=== PATIENT | female | born 1975 | race Asian ===

== ENCOUNTER 2024-10-04 14:03 | Emergency (ER) | payer BC, SELFPAY ==
[2024-10-04 14:05] VITALS: BMI 34.9
--- NOTE | 2024-10-04 14:07 | EKG_ITS ---
[facility] Test Date: 2024-10-04 Pat Name: EDNA RICHARDSON Department: Room: - Gender: Female [employer]: : 1975 Requested By: ED Temporary Provider Order Number: [id number] Reading MD: ED Temporary Provider Measurements Intervals [place] Rate: 85 P: 45 AK: 162 QRS: 19 QRSD: 77 T: 41 QT: 342 QTc: 407 Interpretive Statements SINUS RHYTHM POSSIBLE LEFT ATRIAL ENLARGEMENT [-0.1mV P WAVE IN V1/V2] Compared to ECG 04/12/2021 11:54:40 Sinus tachycardia no longer present /store/S0/[id number]
--- NOTE | 2024-10-04 14:13 | XR_ITS ---
Examination: PA lateral chest 2 views TECHNIQUE: Upright PA lateral chest 2 views Exam date 9: October 04, 2024 1519 hours Comparison 06/10/2021 INDICATIONS: Onset chest pain today. FINDINGS: Normal heart size Suspicious for subtle parenchymal disease in the right upper lobe Left lung clear No pulmonary edema IMPRESSION: Recommend AP lordotic chest follow-up to exclude subtle parenchymal disease in the right upper lobe
--- NOTE | 2024-10-04 14:13 | XR_ITS ---
Examination: CT brain head without contrast. 2-D sagittal coronal reconstructions Date and time of exam:October 04, 2024 1447 hours INDICATIONS: Onset headaches and dizziness beginning today CTDI: vol (mGy):46.5 DLP: (mGycm):920 Technique: Multiple CT axial sections of the brain have been obtained, 5 mm slice thickness. Contrast has not been administered. 2-D sagittal, coronal reconstructions have been obtained Low dose protocols were performed. One or more of the following dose reduction techniques were used; automated exposure control, adjustment of the mA and/or KV according to patient size, use of iterative reconstruction technique. Findings: No significant ventricular enlargement. Intra-axial or extra-axial hemorrhage density is not seen. No mass effect or midline shift Basal cisterns are not remarkable. Fourth ventricle is midline. Cranial vault intact. Impression: Negative for acute hemorrhage, mass effect or midline shift Advise clinical correlation and follow-up accordingly
--- NOTE | 2024-10-04 14:13 | PD.EDRME ---
Rapid Medical Screening Exam RME Arrival date/time: 10/04/24 14:03 48-year-old female presents the emergency department complaints of elevated blood pressure, headache, chest pain Chief Complaint: Chest Pain
[2024-10-04 14:15] VITALS: BP 150/95; PULSE 86; RESP 18; TEMP 37.1; O2SAT 97
[2024-10-04 14:40] LABS: Basophils % (Auto) 0 % (0-2.5); Eosinophils # (Auto) 0.1 Thou/mm3 (0.0-0.5); Eosinophils % (Auto) 1 % (0-10); Hematocrit 42.5 % (36.0-46.0); Hemoglobin 13.8 g/dL (12.0-16.0); Immature Granulocytes % (Auto) 1 % (0-0); Immature Granulocytes Auto 0.04 Thou/mm3 (0.00-0.00); Lymphocytes # (Auto) 2.5 Thou/mm3 (1.0-4.8); Lymphocytes % (Auto) 30 % (10-50); Mean Corpuscular HGB Conc 32.5 g/dl (31.0-37.0); Mean Corpuscular Hemoglobin 30.6 pg (25.0-35.0); Mean Corpuscular Volume 94 fL (80-100); Monocytes # (Auto) 0.4 Thou/mm3 (0.0-0.8); Monocytes % (Auto) 5 % (0-12); Neutrophils # (Auto) 5.1 Thou/mm3 (1.8-7.7); Neutrophils % (Auto) 63 % (37-80); Nucleated Red Blood Cell % 0 /100 WBC (0); Platelet Count 394 Thou/mm3 (140-440); RDW Standard Deviation 47.3 fL (36.4-46.3); Red Blood Count 4.51 Miln/mm3 (4.00-5.20); White Blood Count 8.2 Thou/mm3 (3.6-11.0)
[2024-10-04 14:57] LABS: Partial Thromboplastin Time 30.2 Seconds (22.0-36.0); Prothrombin Time 10.6 Seconds (9.0-12.2)
[2024-10-04 14:58] LABS: B-Type Natriuretic Peptide 39 pg/mL (0-100)
[2024-10-04 15:03] LABS: Alanine Aminotransferase 20 U/L (10-49); Albumin, Serum 4.8 gm/dL (3.5-5.0); Albumin/Globulin Ratio 2.2 (1.2-2.2); Alkaline Phosphatase 74 U/L (46-116); Anion Gap 6 (7-16); Aspartate Amino Transferase 17 U/L (0-34); BUN/Creatinine Ratio 13 Ratio (12-20); Bilirubin,Total 0.4 mg/dL (0.3-1.2); Blood Urea Nitrogen 10 mg/dL (9-23); Calcium 9.7 mg/dL (8.3-10.6); Calcium (Corrected) 9.7 mg/dL (8.5-10.1); Carbon Dioxide 30.8 mMol/L (20.0-31.0); Chloride 103 mMol/L (98-107); Creatinine (Component) 0.8 mg/dL (0.6-1.3); Globulin 2.2 gm/dL (2.3-3.5); Glucose 127 mg/dL (74-106); Magnesium 2.4 mg/dL (1.6-2.6); Osmolality,Calculated 280 (275-295); Potassium 3.9 mMol/L (3.4-5.1); Sodium 140 mMol/L (136-145); Troponin I < 0.020 ng/mL (0.0-0.045); eGFR > 60 See Note
[2024-10-04 15:27] VITALS: BP 173/100; PULSE 88; RESP 18; TEMP 36.7; O2SAT 98
--- NOTE | 2024-10-04 15:34 | PD.EDCHEST ---
ED Chest Pain RME/HPI General Chief Complaint: Chest Pain Stated Complaint: CXP/SOB HIGH BP x 2 DAYS,HEADACHE x 7 DAYS Time Seen by Provider: 10/04/24 14:38 Arrival date/time: 10/04/24 14:03 RME / HPI RME / HPI narrative: 10/04/24 14:03 48-year-old female presents the emergency department complaints of elevated blood pressure, headache, chest pain This section includes all my notes and documentations, including HPI, PE, and ED course.? Leroy Peñaloza MD HPI: 48 year old female with history of migraines presents to the ED for evaluation of chest tightness and fullness sensation beginning this morning after waking. Reports going to bed ~ 9pm last night and was at her usual state of health, no pain or fullness sensation. Additionally reports a dull headache beginning 1 week ago. Denies any changes in vision. Denies fevers, chills, cough, shortness of breath, abdominal pain, n/v/d, or urinary symptoms. Denies feeling anxious. No other complaints. ROS: All negative except as documented in HPI. Physical Exam: General:? Alert and oriented.? Appears anxious. Eyes:? Conjunctivae and lids clear.? ENT:? No nasal congestion.? Neck:? Supple.? Heart:? RRR.? Lungs:? No respiratory distress.? Good air movement.? No rhonchi, wheezing, rales.?? Abdomen:? Soft and nontender.?? Legs:? No clubbing, cyanosis, edema.? Skin:? Warm and dry.?? Neuro:? Alert and oriented X 3.??Cranial nerves II to XII grossly normal. No peripheral motor deficits. I reviewed all diagnostic test results. My interpretation of the EKG is?sinus rhythm with no acute ST?T changes. My interpretation of the chest x-ray is no acute findings. My review of the CT report is?no acute findings. Blood tests unremarkable. At this point, diagnoses include?hypertension and anxiety. Treatment here included?oral clonidine and oral metoprolol and two Tylenol #3. Significant improvement noted. Recommended BP medication and more outpatient workup. Based on my best medical judgment, made decision no further evaluation or treatment indicated at this time.? Patient understands and agrees to the discharge instructions customized and printed, see below. Discharge instructions from Dr. Peñaloza: 1. After extensive evaluation, there is no life-threatening condition.? Such as stroke or brain tumor or heart attack. 2. Your symptoms are due to high BP and may be due to underlying stress or anxiety or nerves.? This is fairly common. 3. Take metoprolol ER 50 mg every morning and every night. You will live longer with lower BP and slower heart rate. Hold if BP < 120 and HR < 60. Tylenol with codeine for severe headache. 4. See a private doctor on 10/07/2024 for recheck and further care. Ask to review all test results and official radiology reports, to make sure you receive all necessary follow-ups and monitoring. To make sure there is no serious underlying heart condition, ask to help you get more tests for your heart that cannot be done here in the ER.? Such as Holter Monitor (cardiac monitoring at home from a day to even a month), heart stress test (on treadmill or with medication), echocardiogram (imaging of your heart structures), heart catherization (checking for blockages in your heart arteries), and a referral to see a Insurance Account Representative. 5. Seek immediate medical care with worsening or with any concerns.?? Leroy Peñaloza MD Related Data Home Medications ?Medication ?Instructions ?Recorded ?Confirmed fluticasone propionate 115 2 puff inhalation BID 04/12/21 04/12/21 mcg-salmeterol 21 mcg/actuation HFA inhaler (Advair HFA) rizatriptan 10 mg disintegrating 10 mg PO QDAY 04/12/21 04/12/21 tablet Previous Rx's ?Medication ?Instructions ?Recorded acetaminophen 300 mg-codeine 30 mg 2 tab PO TID PRN pain #20 tabs 10/04/24 tablet metoprolol succinate 50 mg capsule 50 mg PO BID #60 ea 10/04/24 sprinkle, ext. release 24 hr Allergies Allergy/AdvReac Type Severity Reaction Status Date / Time omeprazole Allergy Severe Rash Verified 10/04/24 14:06 Review of Systems Review of Systems Systems Reviewed: All systems reviewed, normal except as documented Past Medical History Past Medical History NEUROLOGIC: Positive Migraine GASTROINTESTINAL: Positive Gastrointestinal Disorders, Ulcer (1996) and Gastroesophageal Reflux Disease REPRODUCTIVE: Positive Previous Pregnancies (X2) OTHER HISTORY: Positive Chicken Pox Surgical History SURGICAL: Positive Arthroscopy (LEFT KNEE) Social History SMOKING STATUS: Never smoker SECOND HAND EXPOSURE: No ED Exam Narrative Physical exam: As noted in HPI Course Course Course Narrative: chest xray ordered to help determine etiology of chest pain. Quality Measures none Orders Category Date Time Status EKG (ED ONLY) *Do not use* NOW Care 10/04/24 14:[address] head/brain wo con Stat Exams 10/04/24 14:13 Completed EKG (ED Only) Stat Exams 10/04/24 14:07 Draft XR chest 2V Stat Exams 10/04/24 14:13 Completed B-Type Natriuretic Peptide Stat Lab 10/04/24 14:18 Completed CBC Stat Lab 10/04/24 14:18 Completed Comprehensive Metabolic Panel Stat Lab 10/04/24 14:18 Completed HCG,Qualitative Serum Stat Lab 10/04/24 14:18 Completed Magnesium Stat Lab 10/04/24 14:18 Completed Partial Thromboplastin Time Stat Lab 10/04/24 14:18 Completed Prothrombin Time with INR Stat Lab 10/04/24 14:18 Completed Troponin I Stat Lab 10/04/24 14:18 Completed ACETAMINOPHEN w/COD 300-30 [Tylenol w/Cod #3] Med 10/04/24 15:53 Discontinued 2 tab PO X1 ONE Metoprolol Tartrate [Lopressor] Med 10/04/24 15:32 Discontinued 50 mg PO X1 ONE cloNIDine HCL [Catapres] Med 10/04/24 15:32 Discontinued 0.1 mg PO X1 ONE Vital Signs Vital signs: Vital Signs Temperature 98.8 F 10/04/24 14:15 Pulse Rate 86 10/04/24 14:15 Respiratory Rate 18 10/04/24 14:15 Blood Pressure 150/95 H 10/04/24 14:15 Pulse Oximetry (%) 97 10/04/24 14:15 Oxygen Delivery Method Room Air 10/04/24 14:15 Pulse ox is 97% on room air which is adequate. Chest Pain MDM Narrative MDM Narrative:: Zulema Hirsch am scribing for and in the presence of Dr. Peñaloza. Patient data External records reviewed:: [facility] previous records (I reviewed admission from 04/12/2021 through 04/21/2021 ) Clinical information provided by:: patient Social determinants that could affect healthcare access:: none Patient has the following chronic illnesses:: Migraine How is presenting disease/condition affected by chronic disease/condition?: exacerbated by Evaluation data The following diagnostics were reviewed and interpreted by me:: lab results, radiology exam(s) and EKG tracing(s) Lab and/or radiology exams considered but not ordered:: None Interpretation Summary: Normal diagnostics Medications / Prescriptions Medications or Prescriptions considered but not ordered:: None Medication administrations:: Medication Administration History Discontinued Medications Acetaminophen/Codeine Phosphate (Acetaminophen W/Cod 300-30 Tablet) 2 tab PO X1 ONE Stop: 10/04/24 15:54 Last Admin: 10/04/24 16:14 Dose: 2 tab Documented By: [facility] Clonidine (Clonidine Hcl 0.1 Mg Tablet) 0.1 mg PO X1 ONE Stop: 10/04/24 15:33 Last Admin: 10/04/24 15:40 Dose: 0.1 mg Documented By: ED Metoprolol Tartrate (Metoprolol Tartrate 25 Mg Tablet) 50 mg PO X1 ONE Stop: 10/04/24 15:33 Last Admin: 10/04/24 15:41 Dose: 50 mg Documented By: ED Patient given Clonidine and Metropolol and Tylenol with codeine Consultations Consultation(s) initiated? (list below): No Diagnosis Chest Pain Differential Diagnosis: unstable angina pectoris, atypical chest pain, st elevation myocardial infarction, costochondritis and other (Headache, ICH, migraine, anxiety) Most likely diagnosis given after review of the tests above:: Hypertension and anxiety Admission Indicated Admission indicated?: not indicated Explain why admission is indicated or not indicated:: Does not meet admission criteria Admission Request Was there a request for admission?: No Admission Attestation Admission request attestation: Admission criteria not met Disposition Plan Disposition Plan: Discharge Discharge Attestation Discharge Attestation: The patient and all family members were given an opportunity to ask questions and understood the discharge instructions. Discharge instructions specifically effects, indications for sooner follow up or return to the emergency department, and the expected course of current diagnosis. Patient condition: Stable Discharge Plan Plan Patient Disposition: HOME (Self Care) Prescriptions/Referrals Prescriptions/Med Rec: New acetaminophen-codeine 300-30 mg tablet 2 tab PO TID MDD 6 PRN (Reason: pain) Qty: 20 0RF metoprolol succinate 50 mg capsule,sprinkle,ER 24hr 50 mg PO BID Qty: 60 0RF No Action rizatriptan 10 mg tablet,disintegrating 10 mg PO QDAY Patient Comments: TAKE 1 TABLET BY MOUTH EVERY DAY Advair HFA 115-21 mcg/actuation HFA aerosol inhaler 2 puff INHALATION BID Patient Comments: INHALE 2 PUFFS INTO THE LUNGS TWICE DAILY Referrals: Mason Mejia MD [Primary Care Provider] - In 1 week Problem List Clinical Impression: Hypertension Patient/Caregiver Discharge Instructions Education Materials: ED Hypertension, New (Begin Treatment) Additional Instructions: Discharge instructions from Dr. Peñaloza: 1. After extensive evaluation, there is no life-threatening condition.? Such as stroke or brain tumor or heart attack. 2. Your symptoms are due to high BP and may be due to underlying stress or anxiety or nerves.? This is fairly common. 3. Take metoprolol ER 50 mg every morning and every night. You will live longer with lower BP and slower heart rate. Hold if BP < 120 and HR < 60. Tylenol with codeine for severe headache. 4. See a private doctor on 10/07/2024 for recheck and further care. Ask to review all test results and official radiology reports, to make sure you receive all necessary follow-ups and monitoring. To make sure there is no serious underlying heart condition, ask to help you get more tests for your heart that cannot be done here in the ER.? Such as Holter Monitor (cardiac monitoring at home from a day to even a month), heart stress test (on treadmill or with medication), echocardiogram (imaging of your heart structures), heart catherization (checking for blockages in your heart arteries), and a referral to see a Insurance Account Representative. 5. Seek immediate medical care with worsening or with any concerns.?? Print Language: Lithuanian Stand Alone Forms: Peri Award Info., Work/School Release, Patient Portal Info Letter
[2024-10-04 15:38] LABS: HCG,Qualitative Serum Negative
[2024-10-04 15:40] VITALS: BP 173/100; PULSE 88
[2024-10-04] MEDS: cloNIDine HCL 0.1 MG TABLET PO (15:40)
[2024-10-04 15:41] VITALS: BP 173/100; PULSE 88
[2024-10-04] MEDS: METOPROLOL TARTRATE 25 MG TABLET 50 MG PO (15:41)
[2024-10-04] MEDS: ACETAMINOPHEN w/COD 300-30 TABLET 2 TAB PO (16:14)
== END 2024-10-04 17:16 | disposition home or self-care (01) ==
PROVIDERS: Nurse Practitioner Primary Care; Emergency Provider Emergency Medicine; PCP Family Medicine
DX: I10 Essential (primary) hypertension (principal); R51.9 Headache, unspecified; R42 Dizziness and giddiness; R07.9 Chest pain, unspecified; R94.31 Abnormal electrocardiogram [ECG] [EKG]
CPT/HCPCS: 36415; 70450; 71046; 80053; 83735; 83880; 84484; 84703; 85025; 85610; 85730; 93005; 99284; A9270

== ENCOUNTER 2025-09-10 11:04 | Emergency (ER) | payer BC, SELFPAY ==
[2025-09-10 11:25] VITALS: BP 145/105; BP 165/100; PULSE 83; RESP 18; TEMP 36.8; O2SAT 100; BMI 27.2
--- NOTE | 2025-09-10 11:31 | XR_ITS ---
Examination: Abdomen sonogram, Limited Date and time of exam: September 10, 2025, 1153 hours INDICATIONS: Epigastric pain beginning 2 days ago Technique: Real-time cochran scale transabdominal sonographic images of the upper abdomen obtained. Findings: Normal gallbladder Normal common bile duct 0.5 cm Pancreatic head 2.0 cm Liver 19.5 cm probable hemangioma in the right lobe of the liver hyperechoic measuring 16 x 13 x 18 mm Normal hepatopetal portal venous flow Patent IVC IMPRESSION: Normal gallbladder Normal common bile duct Moderate hepatomegaly, recommend 3-month follow-up hepatic sonography to document stability of probable liver hemangioma 16 x 13 x 18 mm
--- NOTE | 2025-09-10 11:31 | EKG_ITS ---
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
--- NOTE | 2025-09-10 11:31 | PD.EDRME ---
Rapid Medical Screening Exam [facility] Arrival date/time: 09/10/25 11:04 49-year-old female presents to the Emergency Department for complaints of epigastric abdominal pain Chief Complaint: Abdominal Pain Vital signs: Vital Signs Temperature 98.3 F 09/10/25 11:25 Pulse Rate 83 09/10/25 11:25 Respiratory Rate 18 09/10/25 11:25 Blood Pressure 165/100 H 09/10/25 11:25 Pulse Oximetry (%) 100 09/10/25 11:25 Oxygen Delivery Method Room Air 09/10/25 11:25 Vital signs reviewed by provider: Yes Exam: On exam patient well-appearing does not appear ill or toxic Clinical Impression: Lab work imaging obtained
[2025-09-10] MEDS: FAMOTIDINE 20 MG TABLET 40 MG PO (11:40)
[2025-09-10 12:21] LABS: Collection Type, Urine Clean Catch
[2025-09-10 12:33] LABS: Basophils # (Auto) 0.0 Thou/mm3 (0.0-0.2); Basophils % (Auto) 0 % (0-2.5); Eosinophils # (Auto) 0.1 Thou/mm3 (0.0-0.5); Eosinophils % (Auto) 1 % (0-10); Hematocrit 41.7 % (36.0-46.0); Hemoglobin 13.3 g/dL (12.0-16.0); Immature Granulocytes Auto 0.01 Thou/mm3 (0.00-0.00); Lymphocytes # (Auto) 1.8 Thou/mm3 (1.0-4.8); Lymphocytes % (Auto) 29 % (10-50); Mean Corpuscular HGB Conc 31.9 g/dl (31.0-37.0); Mean Corpuscular Hemoglobin 29.4 pg (25.0-35.0); Mean Corpuscular Volume 92 fL (80-100); Monocytes # (Auto) 0.4 Thou/mm3 (0.0-0.8); Monocytes % (Auto) 6 % (0-12); Neutrophils # (Auto) 4.0 Thou/mm3 (1.8-7.7); Neutrophils % (Auto) 64 % (37-80); Nucleated Red Blood Cell # 0.00 Thou/mm3 (0.00-0.00); Nucleated Red Blood Cell % 0 /100 WBC (0); Platelet Count 358 Thou/mm3 (140-440); RDW Standard Deviation 49.0 fL (36.4-46.3); Red Blood Count 4.52 Miln/mm3 (4.00-5.20); White Blood Count 6.3 Thou/mm3 (3.6-11.0)
[2025-09-10 12:37] LABS: Bilirubin,Urine Negative (Negative); Blood,Urine Negative (Negative); Clarity,Urine Clear (Clear/Hazy); Color,Urine Lt-Yellow (Lt Yel-Yel); Culture Indicated,Urine Not Indicated; Glucose, Urine Negative (Negative); HCG Qualitative,Urine Negative; Ketones,Urine Negative (Negative); Leukocyte Esterase,Urine Negative (Negative); Nitrite,Urine Negative (Negative); PH,Urine 7.0 (5.0-7.0); Protein,Urine Negative (Neg - Trace); RBC,Urine 3 /hpf (0-3); Specific Gravity,Urine 1.024 (1.001-1.035); Squamous Epithelial Cell,Urine 7 /hpf (0-5); Urobilinogen,Urine Negative mg/dL (0.0-1.0); WBC,Urine 1 /hpf (0-5)
[2025-09-10 12:45] LABS: Alanine Aminotransferase 17 U/L (10-49); Albumin, Serum 4.9 gm/dL (3.5-5.0); Albumin/Globulin Ratio 2.0 (1.2-2.2); Alkaline Phosphatase 66 U/L (46-116); Anion Gap 10 (7-16); Aspartate Amino Transferase 20 U/L (0-34); BUN/Creatinine Ratio 18 Ratio (12-20); Bilirubin,Total 0.5 mg/dL (0.3-1.2); Blood Urea Nitrogen 14 mg/dL (9-23); Calcium 9.9 mg/dL (8.3-10.6); Calcium (Corrected) 9.9 mg/dL (8.5-10.1); Carbon Dioxide 31.5 mMol/L (20.0-31.0); Chloride 105 mMol/L (98-107); Creatinine (Component) 0.8 mg/dL (0.6-1.3); Estimated Creatinine Clearance 68.4 mL/min (>60); Globulin 2.4 gm/dL (2.3-3.5); Glucose 99 mg/dL (74-106); Lipase 31 U/L (12-53); Osmolality,Calculated 291 (275-295); Potassium 4.4 mMol/L (3.4-5.1); Sodium 146 mMol/L (136-145); Total Protein 7.3 gm/dL (5.7-8.2); Troponin I < 0.020 ng/mL (0.0-0.045); eGFR > 60 See Note
--- NOTE | 2025-09-10 14:12 | EDNOTE_ITS ---
<Statement entered by Daiana Bartlett MD - 09/25/25 17:53> I, Daiana Bartlett MD, have reviewed the history, exam, and assessment of the patient. I have evaluated the patient independently and agree with the plan of care documented by [ ]. All diagnostic studies were reviewed and discussed. I confirm the diagnosis as documented by the Resident. I was present during the Medical Decision Making for this patient. The patient's plan of care was created between myself and the Resident and consistent with our discussion of the patient's case. ED General RME/HPI General Chief complaint: Abdominal Pain Stated complaint: EPIGASTRIC PAIN X 2 DAYS Time Seen by Provider: 09/10/25 12:48 Arrival date/time: 09/10/25 11:04 RME / HPI RME / HPI narrative: 09/10/25 11:04 49-year-old female presents to the Emergency Department for complaints of epigastric abdominal pain Exam: On exam patient well-appearing does not appear ill or toxic Impression: Lab work imaging obtained Related Data Home Medications ?Medication ?Instructions ?Recorded ?Confirmed fluticasone propionate 115 2 puff inhalation BID 04/1204/12/21 mcg-salmeterol 21 mcg/actuation HFA inhaler (Advair HFA) rizatriptan 10 mg disintegrating 10 mg PO QDAY 1 04/12/21 tablet Previous Rx's ?Medication ?Instructions ?Recorded acetaminophen 300 mg-codeine 30 mg 2 tab PO TID PRN pa in #20 tabs 10/04/24 tablet metoprolol succinate 50 mg capsule 50 mg PO BID #60 ea 10/04/24 sprinkle, ext. release 24 hr aluminum-mag hydroxide-simethicone 5 ml PO Q3H PRN dys pepsia #3,000 mL 09/10/25 200 mg-200 mg-20 mg/5 mL oral susp (Antacid Plus Anti-Gas) dicyclomine 20 mg tablet 20 mg PO QID PRN abdominal p ain 09/10/25 #30 tabs Allergies Allergy/AdvReac Type Severity Reaction Status Date / Time omeprazole Allergy Severe Rash Verified 09/10/25 11:04 ED Exam Narrative Physical exam: Physical Exam: GENERAL: Awake, answering questions appropriately, appears stated age, appears in mild discomfort secondary to abdominal pain HEENT: NC/AT. Moist mucosa. PERRLA/EOMI. CARDIO: Heart RRR, no obvious murmurs, no JVD. PULM: No coughing or visible SOB. Lungs CTA B/L. GI: Abdomen soft, very mildly tender to palpation near epigastric region with some guarding but no rebound tenderness or rigidity noted. [place]gmi apparent SKIN/MSK/EXT: No wounds/discoloration/rashes/edema/amputations. +Pedal pulses present B/L. NEURO: Oriented x3, Moves extremities x4, no focal neurologic deficits noted. Course Quality Measures none Orders Category Date Time Status EKG (ED ONLY) *Do not use* NOW Care 09/10/25 11:31 Completed EKG (ED Only) Stat Exams 09/10/25 11:31 Draft US gall bladder Stat Exams 09/10/25 11:31 Completed CBC Stat Lab 09/10/25 11:44 Completed Comprehensive Metabolic Panel Stat Lab 09/10/25 11:44 Completed HCG Qualitative,Urine Stat Lab 09/10/25 11:47 Completed Lipase Stat Lab 09/10/25 11:44 Completed Troponin I Stat Lab 09/10/25 11:44 Completed UA, C/S IF [Urinalysis, C/S if Indicated] Stat Lab 09/10/25 11:47 Completed Dicyclomine [Bentyl] Med 09/10/25 13:50 Discontinued 20 mg PO X1 ONE Famotidine [Pepcid] Med 09/10/25 11:31 Discontinued 40 mg PO X1 ONE Lidocaine 2% Viscous [Xylocaine 2% Viscous] Med 09/10/25 14:06 Discontinued 15 ml PO X1 ONE mg Hyd/Al Hyd/Neela Susp [Maalox Susp] Med 09/10/25 14:06 Discontinued 30 ml PO X1 ONE Vital Signs Vital signs: Vital Signs Temperature 98.3 F 09/10/25 11:25 Pulse Rate 83 09/10/25 11:25 Respiratory Rate 18 09/10/25 11:25 Blood Pressure 165/100 H 09/10/25 11:25 Pulse Oximetry (%) 100 09/10/25 11:25 Oxygen Delivery Method Room Air 09/10/25 11:25 Discharge Plan Plan Patient Disposition: HOME (Self Care) Patient condition on transfer: Stable Prescriptions/Referrals Prescriptions/Med Rec: New alum-mag hydroxide-simeth [Antacid Plus Anti-Gas] 200-200-20 mg/5 mL suspen david 5 ml PO Q3H PRN (Reason: dyspepsia) Qty: 3000 0RF dicyclomine 20 mg tablet 20 mg PO QID PRN (Reason: abdominal pain) Qty: 30 0RF No Action rizatriptan 10 mg tablet,disintegrating 10 mg PO QDAY Patient Comments: TAKE 1 TABLET BY MOUTH EVERY DAY Advair HFA 115-21 mcg/actuation HFA aerosol inhaler 2 puff INHALATION BID Patient Comments: INHALE 2 PUFFS INTO THE LUNGS TWICE DAILY acetaminophen-codeine 300-30 mg tablet 2 tab PO TID MDD 6 PRN (Reason: pain) Qty: 20 0RF metoprolol succinate 50 mg capsule,sprinkle,ER 24hr 50 mg PO BID Qty: 60 0RF Problem List Clinical Impression: Gastritis, Hemangioma Patient/Caregiver Discharge Instructions Additional Instructions: Take Maalox-simethicone and dicyclomine as prescribed for abdominal symptoms Please follow-up on hemangioma seen on ultrasound liver with repeat ultrasound in 3 months Follow-up with your primary care doctor within 1 week and ask for a GI referral if symptoms persist If your symptoms worsen or if you develop severe abdominal pain, chest pain, shortness of breath or bleeding please come back to the ER immediately Print Language: [place]er Stand Alone Forms: [employer]avern Award Info., Work/School Release, Patient Portal Info Letter MDM Narrative MDM hospital course (for use when minimal MDM required): HPI: 49-year-old female with past medical history of asthma, migraine and hypertension presenting to the ED on 09/10 for abdominal discomfort for the past 2 days. Patient states discomfort started roughly 2 days ago without any inciting events; she denies any recent dietary changes. She states that pain is mostly in the epigastric region and feels like a squeezing like sensation. She states that she tried antacids and [id number] medications and Tylenol which did not help with the pain. She denies having any recent weight loss, night sweats, chest pain, shortness of breath, palpitations, melena, hematochezia or hematemesis. She also denies being constipated and has having regular bowel movements. She is unsure of her family history as she is adopted. She notes occasional alcohol use but denies any tobacco or illicit drug use. On examination, patient presented mildly hypertensive 165/100, heart rate of 83, respiratory rate of 18, afebrile satting well on room air. Please refer to physical exam above; pertinent lab findings included CBC without leukocytosis or anemia and normal platelet count, CMP showed mild hyponatremia with metabolic alkalosis, normal liver enzymes, troponin less than 0.020 and lipase of 30. An EKG showed sinus rhythm without any concerning ST changes. Gallbladder ultrasound showed normal gallbladder, normal common bile duct and moderate hepatomegaly with a probable liver hemangioma measuring 16 x 13 x 18 mm. Urinalysis was negative for any signs of infection. #Abdominal pain Differentials include gastritis, peptic ulcer disease, H. pylori, pancreatitis less likely As noted based on HPI, physical exam and lab and imaging findings Patient was given 40 mg of famotidine without much improvement in dyspepsia Will attempt 20 mg dicyclomine, lidocaine 2% viscous and Maalox 30 mL Plan: Will discharge with the following strict instructions Take Maalox-simethicone and dicyclomine as prescribed for abdominal symptoms Please follow-up on hemangioma seen on ultrasound liver with repeat ultrasound in 3 months Follow-up with your primary care doctor within 1 week and ask for a GI referral if symptoms persist If your symptoms worsen or if you develop severe abdominal pain, chest pain, shortness of breath or bleeding please come back to the ER immediately Patient seen and assessed with attending Dr. Dhruv Neal, DO PGY-2 Internal Medicine - GME Medication Administration(s) Medication Administration History Discontinued Medications Al Hydrox/Mg Hydrox/Simethicone (Mg Hyd/Al Hyd/Neela (Maalox Reg) Susp 30 Ml Udc) 30 ml PO X1 ONE Stop: 09/10/25 14:07 Last Admin: 09/10/25 14:22 Dose: 30 ml Documented By: Dicyclomine HCl (Dicyclomine 10 Mg Capsule) 20 mg PO X1 ONE Stop: 09/10/25 13:51 Last Admin: 09/10/25 14:21 Dose: 20 mg Documented By: Famotidine (Famotidine 20 Mg Tablet) 40 mg PO X1 ONE Stop: 09/10/25 11:32 Last Admin: 09/10/25 11:40 Dose: 40 mg Documented By: OA Lidocaine HCl (Lidocaine Viscous 2% 15 Ml Udc) 15 ml PO X1 ONE Stop: 09/10/25 14:07 Last Admin: 09/10/25 14:21 Dose: 15 ml Documented By:
[2025-09-10] MEDS: LIDOCAINE VISCOUS 2% 15 ML UDC PO (14:21)
[2025-09-10] MEDS: DICYCLOMINE 10 MG CAPSULE 20 MG PO (14:21)
[2025-09-10] MEDS: MG HYD/AL HYD/SIME (Maalox Reg) SUSP 30 ML UDC PO (14:22)
== END 2025-09-10 15:26 | disposition home or self-care (01) ==
PROVIDERS: Nurse Practitioner Primary Care; Emergency Provider Emergency Medicine; PCP Family Medicine
DX: K29.70 Gastritis, unspecified, without bleeding (principal); D18.03 Hemangioma of intra-abdominal structures; R94.31 Abnormal electrocardiogram [ECG] [EKG]
CPT/HCPCS: 36415; 76705; 80053; 81001; 81025; 83690; 84484; 85025; 93005; 99283; J3490; A9270